=== PATIENT | male | born 1970 | race Caucasian/White ===

== ENCOUNTER 2022-11-24 20:31 | Emergency (ER) | payer OTHER ==
[~2022-11-24] VITALS: Ht 396.2 cm; Wt 77.0 kg
[2022-11-24 20:58] VITALS: BP 139/98; PULSE 71; RESP 16; TEMP 98.1; O2SAT 96
== END 2022-11-24 21:40 ==
LOC: ER 20:31
DX: R68.89 Other general symptoms and signs (principal)
CPT/HCPCS: 99283